=== PATIENT | male | born 1960 | race Caucasian/White ===

== ENCOUNTER 2018-10-13 20:10 | Emergency (ER) | payer MEDICARE, OTHER ==
[~2018-10-13] VITALS: Ht 167.6 cm; Wt 72.6 kg
[2018-10-13] MEDS ORDERED: PHENY30ER PO (20:40)
[2018-10-13] MEDS ORDERED: PARO20 PO (20:41)
[2018-10-13] MEDS ORDERED: METAMUCIL660 GM (20:41)
[2018-10-13] MEDS ORDERED: PHENY100ER PO (20:41)
[2018-10-13] MEDS ORDERED: Milk Of Ma400 MG/5 M (20:41)
[2018-10-13] MEDS ORDERED: QUET200 PO (20:42)
[2018-10-13] MEDS ORDERED: REXULTI3 MG PO (20:42)
[2018-10-13] MEDS ORDERED: Benztropine Mesy1 MG (20:43)
[2018-10-13] MEDS ORDERED: OLAN5 PO (20:43)
[2018-10-13] MEDS ORDERED: BUSP10 PO (20:44)
[2018-10-13] MEDS ORDERED: TOPI50 PO (20:44)
[2018-10-13] MEDS ORDERED: DEXA4 PO (20:44)
[2018-10-13] MEDS ORDERED: SENN187 PO (20:44)
[2018-10-13] MEDS ORDERED: GABA100 PO (20:45)
[2018-10-13] MEDS ORDERED: CLON1 PO (20:45)
[2018-10-13] MEDS ORDERED: DIPH50 PO (20:45)
[2018-10-13] MEDS ORDERED: Haldol5 MG/1 ML IJ (20:46)
[2018-10-13] MEDS ORDERED: MORP10S (20:47)
[2018-10-13] MEDS ORDERED: ALBU90OI6 INH (20:48)
[2018-10-13] MEDS ORDERED: ACET325 (20:48)
[2018-10-13 22:36] LABS: BASOPHILS ABSOLUTE AUTO 0.03 K/mm3 (0.00-0.23); BASOPHILS PERCENT AUTO 0 % (0-2); EOSINOPHILS ABSOLUTE AUTO 0.08 K/mm3 (0.00-0.68); EOSINOPHILS PERCENT AUTO 0 % (0-6); Hematocrit 40.1 % (37.0-53.0); Hemoglobin 12.9 g/dL (13.5-17.5); IMMATURE GRAN ABSOLUTE AUTO 0.19 K/mm3 (0.00-0.10); IMMATURE GRAN PERCENT AUTO 1 % (0-1); LYMPHOCYTES ABSOLUTE AUTO 1.59 K/mm3 (0.84-5.20); LYMPHOCYTES PERCENT AUTO 9 % (21-46); MONOCYTES ABSOLUTE AUTO 2.04 K/mm3 (0.16-1.47); MONOCYTES PERCENT AUTO 11 % (4-13); Mean Corpuscular HGB 32.1 pg (26.0-34.0); Mean Corpuscular HGB Conc 32.2 g/dL (31.5-36.5); Mean Corpuscular Volume 100 fL (80-100); Mean Platelet Volume 9.6 fL (9.1-12.4); NEUTROPHILS ABSOLUTE AUTO 14.38 K/mm3 (1.96-9.15); NEUTROPHILS PERCENT AUTO 79 % (41-73); Platelet Count 102 K/mm3 (150-400); RDW Coefficient Variation 14.5 % (11.7-14.2); RDW Standard Deviation 52.7 fL (35.1-46.3); Red Blood Cell Count 4.02 M/mm3 (4.30-5.90); White Blood Cell Count 18.31 K/mm3 (4.00-11.30)
[2018-10-13 23:19] LABS: Source, Urine Clean Catch
[2018-10-13 23:21] LABS: Bilirubin, Urine Neg (Neg); Blood, Urine 4+ (Neg); Glucose Qualitative, Urine Neg (Neg); Ketones, Urine Neg (Neg); Leukocyte Esterase, Urine 2+ (Neg); Nitrite, Urine Neg (Neg); Protein, Urine 1+ (Neg); Urobilinogen, Urine NORM (Normal)
[2018-10-13 23:29] LABS: Amorphous Light (0-Heavy); Appearance, Urine Clear (Clear); Bacteria Rare /hpf; Color, Urine Yellow (P-Yellow); Red Blood Cells, Urine 25-50 /hpf (0-2); Squamous Epithelial Cells Rare /hpf (Few)
[2018-10-13 23:32] LABS: Alanine Aminotransfer (ALT/SGP 119 U/L (12-78); Albumin, Blood 2.7 g/dL (3.4-5.0); Albumin/Globulin Ratio 0.8 (0.8-1.8); Alk Phos 160 U/L (50-136); Anion Gap 7 mmol/L (6-16); Aspartate Aminotrans (AST/SGOT 268 U/L (12-37); Bilirubin, Total 0.2 mg/dL (0.1-1.0); Blood Urea Nitrogen 19 mg/dL (8-24); Bun/Creatinine Ratio 22.8 (12.0-20.0); CO2, Blood 27 mmol/L (21-32); Calcium, Blood 7.9 mg/dL (8.5-10.1); Chloride, Blood 108 mmol/L (98-108); Creatinine, Blood 0.83 mg/dL (0.60-1.20); Globulin, Blood 3.2 g/dL (2.2-4.0); Glomerular Filtration Rate >60 (60-); Glucose, Blood 136 mg/dL (70-99); Potassium, Blood 3.8 mmol/L (3.5-5.5); Sodium, Blood 142 mmol/L (136-145); Total Protein, Blood 5.9 g/dL (6.4-8.2)
[2018-10-14 00:08] LABS: Influenza A Negative (NEGATIVE); Influenza B Negative (NEGATIVE)
== END 2018-10-14 02:10 | disposition home or self-care (01) ==
LOC: ER 20:10
PROVIDERS: Emergency Medicine
DX: R45.1 Restlessness and agitation (principal); R65.10 Systemic inflammatory response syndrome (SIRS) of non-infectious origin without acute organ dysfunction; C71.9 Malignant neoplasm of brain, unspecified; Z79.899 Other long term (current) drug therapy; Z79.891 Long term (current) use of opiate analgesic
CPT/HCPCS: 36415; 51702; 71045; 80053; 81001; 83605; 85025; 87077; 87086; 87186; 87804; 96361-59; 96372-59; 96374-59; 96375-59; 96376-59; 99285-25; J1170; J1200; J1630; J2060; J7030